=== PATIENT | female | born 2005 | race African-American/Black ===

== ENCOUNTER 2024-02-26 15:56 | Emergency (ER) | payer OTHER ==
[~2024-02-26] VITALS: Ht 165.1 cm; Wt 106.0 kg
[2024-02-26 15:56] VITALS: BP 143/70; TEMP 98.2; O2SAT 98
[2024-02-26] MEDS ORDERED: MULTTAB20 PO (16:08)
[2024-02-26] MEDS ORDERED: SYMB16INH INH (16:11)
[2024-02-26 16:50] LABS: BASO % 0.4 % (0.0-1.0); EOS # 0.1 10^3/uL (0.0-0.5); HEMATOCRIT 36.3 % (36.0-47.0); HEMOGLOBIN 12.1 g/dl (12.0-15.5); LYMPH % 25.9 % (24.0-44.0); MEAN CORPUSCULAR HEMOGLOBIN 28.7 pg (27.0-33.0); MEAN CORPUSCULAR HGB CONC 33.3 g/dl (32.0-36.5); MEAN CORPUSCULAR VOLUME 86.2 fl (80.0-96.0); MONO # 0.4 10^3/uL (0.0-0.8); MONO % 5.1 % (2.0-8.0); NEUTROPHILS # 5.2 10^3/uL (1.5-8.5); NEUTROPHILS % 67.5 % (36.0-66.0); PLATELET COUNT, AUTOMATED 344 10^3/uL (150-450); RED BLOOD COUNT 4.21 10^6/uL (4.00-5.40); WHITE BLOOD COUNT 7.7 10^3/uL (4.0-10.0)
[2024-02-26 17:22] LABS: APPEARANCE, URINE CLEAR (CLEAR); BACTERIA, URINE AUTO NEGATIVE (NEGATIVE); BILIRUBIN, URINE AUTO NEGATIVE (NEGATIVE); BLOOD, URINE BLOOD NEGATIVE (NEGATIVE); COLOR, URINE YELLOW (YELLOW); GLUCOSE, URINE (UA) AUTO NEGATIVE (NEGATIVE); KETONE, URINE AUTO NEGATIVE (NEGATIVE); LEUKOCYTE ESTERASE, URINE AUTO NEGATIVE (NEGATIVE); MUCUS, URINE SMALL (NEGATIVE); NITRITE, URINE AUTO NEGATIVE (NEGATIVE); PROTEIN, URINE AUTO NEGATIVE (NEGATIVE); RBC, URINE AUTO 2 /HPF (0-3); SPECIFIC GRAVITY URINE AUTO 1.021 (1.002-1.035); SQUAMOUS EPITHELIAL CELL UR AU 2 /HPF (0-6); UROBILINOGEN, URINE AUTO 0.2 mg/dL (0.0-2.0); WBC, URINE AUTO 0 /HPF (0-3)
[2024-02-26] MEDS: KETOROLAC 30 MG/ML 1ML VIAL IV ONE (18:00)
== END 2024-02-26 18:35 | disposition home or self-care (01) ==
LOC: M ED 15:56
DX: R10.2 Pelvic and perineal pain (principal); J45.909 Unspecified asthma, uncomplicated; D64.9 Anemia, unspecified; N80.9 Endometriosis, unspecified; F17.290 Nicotine dependence, other tobacco product, uncomplicated; F10.10 Alcohol abuse, uncomplicated; Z91.018 Allergy to other foods; Z79.810 Long term (current) use of selective estrogen receptor modulators (SERMs); Z79.899 Other long term (current) drug therapy
CPT/HCPCS: 76830; 76856; 80047; 81001; 84702; 85025; 86850; 86900; 86901; 87086; 93976; 96374; 99283; J1885

== ENCOUNTER 2024-04-22 22:15 | Emergency (ER) | payer OTHER ==
[~2024-04-22] VITALS: Ht 165.1 cm; Wt 104.3 kg
[~2024-04-22 22:15] MED LIST: MULTTAB20 PO; SYMB16INH INH
[2024-04-22 23:01] LABS: BASO % 0.4 % (0.0-1.0); EOS # 0.1 10^3/uL (0.0-0.5); EOS % 1.3 % (0.0-3.0); HEMATOCRIT 35.5 % (36.0-47.0); HEMOGLOBIN 11.9 g/dl (12.0-15.5); LYMPH # 2.8 10^3/uL (1.5-5.0); LYMPH % 30.2 % (24.0-44.0); MEAN CORPUSCULAR HEMOGLOBIN 28.8 pg (27.0-33.0); MEAN CORPUSCULAR HGB CONC 33.5 g/dl (32.0-36.5); MONO # 0.6 10^3/uL (0.0-0.8); MONO % 6.6 % (2.0-8.0); NEUTROPHILS # 5.6 10^3/uL (1.5-8.5); NEUTROPHILS % 61.3 % (36.0-66.0); PLATELET COUNT, AUTOMATED 359 10^3/uL (150-450); RED BLOOD COUNT 4.13 10^6/uL (4.00-5.40); WHITE BLOOD COUNT 9.1 10^3/uL (4.0-10.0)
[2024-04-22 23:27] LABS: LIPASE 37 U/L (12-53)
[2024-04-22 23:28] LABS: HCG, SERUM QUALITATIVE NEGATIVE (NEGATIVE)
[2024-04-22 23:29] LABS: ALBUMIN 4.3 G/DL (3.2-5.2); ALKALINE PHOSPHATASE 63 U/L (46-116); ALT/SGPT 21 U/L (7.0-40); AST/SGOT 19 U/L (<34); BILIRUBIN,DIRECT 0.1 MG/DL (<0.4); BILIRUBIN,TOTAL 0.4 MG/DL (0.3-1.2); BLOOD UREA NITROGEN 12 MG/DL (9-23); CALCIUM LEVEL 9.8 MG/DL (8.5-10.1); CARBON DIOXIDE LEVEL 27 MMOL/L (20-31); CHLORIDE LEVEL 107 MMOL/L (98-107); CREATININE FOR GFR 0.84 MG/DL (0.55-1.30); GLOMERULAR FILTRATION RATE > 60.0 (>60); GLUCOSE, FASTING 90 MG/DL (60-100); POTASSIUM SERUM 4.5 MMOL/L (3.5-5.1); SODIUM LEVEL 139 MMOL/L (136-145); TOTAL PROTEIN 6.8 G/DL (5.7-8.2)
[2024-04-23] MEDS ORDERED: NAPR-837 PO (08:00)
[2024-04-23 08:19] VITALS: BP 113/59; TEMP 96.8; O2SAT 100
[2024-04-23 08:41] LABS: Trichomonas vaginalis (AMP) NOT DETECTED (NEGATIVE)
[2024-04-23 09:04] LABS: GC DNA AMPLIFICATION NEGATIVE (NEGATIVE)
== END 2024-04-23 08:20 | disposition home or self-care (01) ==
LOC: M ED 22:15
DX: N64.52 Nipple discharge (principal); M25.512 Pain in left shoulder; J45.909 Unspecified asthma, uncomplicated; D64.9 Anemia, unspecified; Z91.018 Allergy to other foods

== ENCOUNTER 2024-08-13 14:12 | Emergency (ER) | payer OTHER ==
[~2024-08-13] VITALS: Ht 165.1 cm; Wt 99.9 kg
[~2024-08-13 14:12] MED LIST changes: +NAPR-837 PO
[2024-08-13 15:01] LABS: APPEARANCE, URINE CLEAR (CLEAR); BACTERIA, URINE AUTO NEGATIVE (NEGATIVE); BILIRUBIN, URINE AUTO NEGATIVE (NEGATIVE); BLOOD, URINE BLOOD NEGATIVE (NEGATIVE); COLOR, URINE YELLOW (YELLOW); GLUCOSE, URINE (UA) AUTO NEGATIVE (NEGATIVE); KETONE, URINE AUTO NEGATIVE (NEGATIVE); LEUKOCYTE ESTERASE, URINE AUTO NEGATIVE (NEGATIVE); NITRITE, URINE AUTO NEGATIVE (NEGATIVE); PROTEIN, URINE AUTO NEGATIVE (NEGATIVE); RBC, URINE AUTO 0 /HPF (0-3); SPECIFIC GRAVITY URINE AUTO 1.008 (1.002-1.035); SQUAMOUS EPITHELIAL CELL UR AU 4 /HPF (0-6); UROBILINOGEN, URINE AUTO 0.2 mg/dL (0.0-2.0); WBC, URINE AUTO 0 /HPF (0-3)
[2024-08-13 15:12] LABS: BASO % 0.1 % (0.0-1.0); EOS # 0.1 10^3/uL (0.0-0.5); EOS % 0.8 % (0.0-3.0); HEMATOCRIT 37.6 % (36.0-47.0); HEMOGLOBIN 12.7 g/dl (12.0-15.5); LYMPH # 2.1 10^3/uL (1.5-5.0); LYMPH % 24.6 % (24.0-44.0); MEAN CORPUSCULAR HEMOGLOBIN 29.1 pg (27.0-33.0); MEAN CORPUSCULAR HGB CONC 33.8 g/dl (32.0-36.5); MEAN CORPUSCULAR VOLUME 86.2 fl (80.0-96.0); MONO # 0.5 10^3/uL (0.0-0.8); MONO % 6.2 % (2.0-8.0); NEUTROPHILS # 5.7 10^3/uL (1.5-8.5); NEUTROPHILS % 67.9 % (36.0-66.0); PLATELET COUNT, AUTOMATED 343 10^3/uL (150-450); RED BLOOD COUNT 4.36 10^6/uL (4.00-5.40); WHITE BLOOD COUNT 8.4 10^3/uL (4.0-10.0)
[2024-08-13 16:37] LABS: GC DNA AMPLIFICATION NEGATIVE (NEGATIVE)
[2024-08-13 16:41] LABS: HCG, SERUM QUANTITATIVE 7320.2 MIU/ML (<4.2)
[2024-08-13 18:56] LABS: BLOOD UREA NITROGEN 10 MG/DL (9-23); CARBON DIOXIDE LEVEL 24 MMOL/L (20-31); CHLORIDE LEVEL 106 MMOL/L (98-107); CREATININE FOR GFR 0.72 MG/DL (0.55-1.30); GLOMERULAR FILTRATION RATE > 60.0 (>60); GLUCOSE, FASTING 81 MG/DL (60-100); POTASSIUM SERUM 4.3 MMOL/L (3.5-5.1); SODIUM LEVEL 138 MMOL/L (136-145)
[2024-08-13 19:32] LABS: Trichomonas vaginalis (AMP) NOT DETECTED (NEGATIVE)
[2024-08-13 21:02] LABS: CK-MB VALUE MASS < 1.0 NG/ML (<3.6); CPK CREATINE PHOSPHOKINASE 145 U/L (34-145); MB/CK RELATIVE INDEX 0.68 (< OR =4)
[2024-08-13 21:30] VITALS: BP 130/61; TEMP 98.9; O2SAT 99
[2024-08-13] MEDS: ALBUTEROL 90 MCG/ACT 8GM HFA INHALER INH ONE (21:46)
[2024-08-13] MEDS ORDERED: VENTAER INH (21:50)
== END 2024-08-13 21:52 | disposition home or self-care (01) ==
LOC: M ED 14:12
DX: O26.891 Other specified pregnancy related conditions, first trimester (principal); O99.511 Diseases of the respiratory system complicating pregnancy, first trimester; J45.909 Unspecified asthma, uncomplicated; M25.512 Pain in left shoulder; Z3A.01 Less than 8 weeks gestation of pregnancy; O99.011 Anemia complicating pregnancy, first trimester; O34.81 Maternal care for other abnormalities of pelvic organs, first trimester

== ENCOUNTER → 2024-08-21 | Outpatient (CLI) | payer OTHER ==
[~2024-08-21] MED LIST changes: +VENTAER INH
== END ==
LOC: M WHC 06:52
PROVIDERS: ATTEND Family Medicine
DX: N64.52 Nipple discharge (principal)

== ENCOUNTER → 2024-10-11 | Outpatient (REF) | payer OTHER | LOC: M LAB REF 17:55 | PROVIDERS: ATTEND Student in an Organized Health Care Education/Training Program | DX: R30.0 Dysuria (principal) ==

== ENCOUNTER → 2024-10-17 | Outpatient (CLI) | payer OTHER | LOC: M CARPUL 12:57 | PROVIDERS: ATTEND Family Medicine | DX: R06.00 Dyspnea, unspecified (principal) ==

== ENCOUNTER 2024-10-23 10:23 | Emergency (ER) | payer OTHER ==
[~2024-10-23] VITALS: Ht 165.1 cm; Wt 95.8 kg
[2024-10-23 12:52] LABS: HEMATOCRIT 34.6 % (36.0-47.0); MEAN CORPUSCULAR HEMOGLOBIN 29.9 pg (27.0-33.0); MEAN CORPUSCULAR HGB CONC 34.7 g/dl (32.0-36.5); MEAN CORPUSCULAR VOLUME 86.3 fl (80.0-96.0); PLATELET COUNT, AUTOMATED 274 10^3/uL (150-450); RED BLOOD COUNT 4.01 10^6/uL (4.00-5.40); WHITE BLOOD COUNT 10.3 10^3/uL (4.0-10.0)
[2024-10-23 13:14] LABS: LIPASE 26 U/L (12-53)
[2024-10-23 13:24] LABS: ALBUMIN 3.4 G/DL (3.2-5.2); ALKALINE PHOSPHATASE 52 U/L (35-104); ALT/SGPT 11 U/L (7.0-40); AST/SGOT 11 U/L (<34); BILIRUBIN,DIRECT 0.1 MG/DL (<0.4); BILIRUBIN,TOTAL 0.4 MG/DL (0.3-1.2); BLOOD UREA NITROGEN 5 MG/DL (9-23); CALCIUM LEVEL 9.6 MG/DL (8.5-10.1); CARBON DIOXIDE LEVEL 24 MMOL/L (20-31); CHLORIDE LEVEL 108 MMOL/L (98-107); CREATININE FOR GFR 0.53 MG/DL (0.55-1.30); GLOMERULAR FILTRATION RATE > 60.0 (>60); GLUCOSE, FASTING 95 MG/DL (60-100); POTASSIUM SERUM 4.3 MMOL/L (3.5-5.1); SODIUM LEVEL 139 MMOL/L (136-145)
[2024-10-23 15:24] VITALS: BP 123/64; TEMP 97.5; O2SAT 99
== END 2024-10-23 15:32 | disposition home or self-care (01) ==
LOC: M ED 10:23
DX: O9A.212 Injury, poisoning and certain other consequences of external causes complicating pregnancy, second trimester (principal); R10.9 Unspecified abdominal pain; W19.XXXA Unspecified fall, initial encounter; Y92.9 Unspecified place or not applicable; Y93.9 Activity, unspecified; Y99.9 Unspecified external cause status; O99.512 Diseases of the respiratory system complicating pregnancy, second trimester; O99.012 Anemia complicating pregnancy, second trimester; Z3A.15 15 weeks gestation of pregnancy; Z91.018 Allergy to other foods

== ENCOUNTER 2025-02-02 17:31 | Emergency (ER) | payer OTHER ==
[~2025-02-02] VITALS: Ht 165.1 cm; Wt 105.2 kg
[2025-02-02] MEDS ORDERED: VITA500T9 (17:48)
[2025-02-02] MEDS ORDERED: CLON0.5T17 PO (17:48)
[2025-02-02] MEDS ORDERED: QUET1TAB17 (17:48)
[2025-02-02] MEDS ORDERED: FERR32TA (17:48)
[2025-02-02 18:31] LABS: BASO % 0.2 % (0.0-1.0); EOS % 0.4 % (0.0-3.0); HEMATOCRIT 31.3 % (36.0-47.0); HEMOGLOBIN 10.4 g/dl (12.0-15.5); LYMPH # 1.4 10^3/uL (1.5-5.0); LYMPH % 13.4 % (24.0-44.0); MEAN CORPUSCULAR HEMOGLOBIN 28.4 pg (27.0-33.0); MEAN CORPUSCULAR HGB CONC 33.2 g/dl (32.0-36.5); MEAN CORPUSCULAR VOLUME 85.5 fl (80.0-96.0); MONO # 0.4 10^3/uL (0.0-0.8); NEUTROPHILS # 8.5 10^3/uL (1.5-8.5); NEUTROPHILS % 80.9 % (36.0-66.0); PLATELET COUNT, AUTOMATED 227 10^3/uL (150-450); RED BLOOD COUNT 3.66 10^6/uL (4.00-5.40); WHITE BLOOD COUNT 10.5 10^3/uL (4.0-10.0)
[2025-02-02 18:52] LABS: BLOOD UREA NITROGEN 9 MG/DL (9-23); CARBON DIOXIDE LEVEL 21 MMOL/L (20-31); CHLORIDE LEVEL 106 MMOL/L (98-107); CREATININE FOR GFR 0.66 MG/DL (0.55-1.30); GLOMERULAR FILTRATION RATE > 60.0 (>60); GLUCOSE, FASTING 87 MG/DL (60-100); MAGNESIUM LEVEL 1.9 MG/DL (1.8-2.4); POTASSIUM SERUM 3.8 MMOL/L (3.5-5.1); SODIUM LEVEL 138 MMOL/L (136-145)
[2025-02-02 19:56] VITALS: BP 120/56; TEMP 97.5; O2SAT 99
[2025-02-02] MEDS: ACETAMINOPHEN 500 MG TAB PO ONE (19:56)
== END 2025-02-02 20:04 | disposition home or self-care (01) ==
LOC: M ED 17:31
DX: O99.891 Other specified diseases and conditions complicating pregnancy (principal); R55 Syncope and collapse; M25.551 Pain in right hip; Z3A.30 30 weeks gestation of pregnancy; O99.343 Other mental disorders complicating pregnancy, third trimester

== ENCOUNTER → 2025-03-04 | Outpatient (CLI) | payer OTHER ==
[~2025-03-04] MED LIST changes: +CLON0.5T17 PO; +FERR32TA; +PRENTAB9 PO; +QUET1TAB17; +VITA500T9
== END ==
LOC: M WHC 08:11
PROVIDERS: ATTEND Midwife
DX: Z34.83 Encounter for supervision of other normal pregnancy, third trimester (principal); Z3A.34 34 weeks gestation of pregnancy

== ENCOUNTER 2025-03-06 00:38 | Emergency (ER) | payer OTHER ==
[~2025-03-06 00:38] MED LIST changes: -PRENTAB9 PO
[2025-03-06] MEDS ORDERED: PRENTAB9 PO (01:17)
== END 2025-03-06 00:45 | disposition admitted as inpatient to this hospital (09) ==
LOC: M ED 00:38
DX: Z53.21 Procedure and treatment not carried out due to patient leaving prior to being seen by health care provider (principal)

== ENCOUNTER 2025-03-06 00:52 | Outpatient (CLI) | payer OTHER ==
[~2025-03-06] VITALS: Ht 165.1 cm; Wt 107.6 kg
[2025-03-06 01:14] VITALS: BP 121/59; O2SAT 98
[2025-03-06] MEDS ORDERED: PRENTAB9 PO (01:17)
[2025-03-06 02:27] VITALS: BP 124/72
== END 2025-03-06 02:35 | disposition home or self-care (01) ==
LOC: M LDO 00:52
PROVIDERS: ATTEND Obstetrics & Gynecology
DX: O26.893 Other specified pregnancy related conditions, third trimester (principal); R55 Syncope and collapse; Z3A.34 34 weeks gestation of pregnancy
CPT/HCPCS: 59025; G0463